=== PATIENT | female | born 1995 | race Caucasian/White ===

== ENCOUNTER 2018-02-10 13:06 | Emergency (ER) | payer BC ==
[2018-02-10 13:59] VITALS: BP 132/76
--- NOTE | 2018-02-10 14:16 | UC ---
Back Pain HPI - HPI Summary HPI Summary: 22 yo female presents with pain in her tailbone area. She tells me that 2 days ago she missed a step going down stairs and landed on her tailbone. Has had pain in the area since that time - worse when trying to move from a stationary position. She has been taking ibuprofen with no relief. Denies numbness, tingling, loss of bowel/bladder function, radiation of pain. - History of Current Complaint Chief Complaint: UCLowerExtremity Stated Complaint: TAILBONE INJ Time Seen by Provider: 02/10/18 14:15 Hx Obtained From: Patient Hx Last Menstrual Period: 01/20/18 Onset/Duration: Sudden Onset Timing: Constant Severity Initially: Severe Severity Currently: Severe Pain Intensity: 9 Pain Scale Used: 0-10 Numeric - Allergies/Home Medications Allergies/Adverse Reactions: Allergies Allergy/AdvReac Type Severity Reaction Status Date / Time No Known Allergies Allergy Verified 02/10/18 13:53 Home Medications: Home Medications Ibuprofen TAB* [Advil TAB*] 600 mg PO Q6H PRN 02/10/18 [History Confirmed ] PMH/Surg Hx/FS Hx/Imm Hx - Additional Past Medical History Additional PMH: None - Surgical History Surgical History: None - Family History Known Family History: Positive: None - Social History Occupation: Employed Full-time Lives: With Family Alcohol Use: Occasionally Substance Use Type: None Smoking Status (MU): Never Smoked Tobacco Review of Systems Constitutional: Negative Skin: Negative Respiratory: Negative Cardiovascular: Negative Gastrointestinal: Negative Genitourinary: Negative Neurovascular: Negative Musculoskeletal: Other: - Tailbone pain Neurological: Negative Psychological: Negative All Other Systems Reviewed And Are Negative: Yes Physical Exam - Summary Physical Exam Summary: GENERAL: NAD. WDWN. No pain distress. SKIN: No rashes, sores, lesions, or open wounds. NECK: Supple. FROM. Nontender. No lymphadenopathy. CHEST: CTAB. No r/r/w. No accessory muscle use. Breathing comfortably and in no distress. CV: RRR. Without m/r/g. Pulses intact. Cap refill <2seconds MSK: Moderate TTP over coccyx. Pain with flexion and extension of spine. Negative SLR b/l. Strength 5/5 B/L LEs including dorsiflexion and plantar flexion. FROM B/L LEs. No edema. NEURO: Alert. Sensations intact B/L LEs L3-S1. PSYCH: Age appropriate behavior. Triage Information Reviewed: Yes Vital Signs: Initial Vital Signs Temp 98.2 F 02/10/18 13:54 Pulse 87 02/10/18 13:54 Resp 15 02/10/18 13:54 BP 132/76 02/10/18 13:54 Pulse Ox 99 02/10/18 13:54 Vital Signs Reviewed: Yes Back Pain Course/Dx - Course Course Of Treatment: XR: IMPRESSION: POSSIBLE NONDISPLACED FRACTURE OF THE SACRUM. Given this result, a CT was ordered which revealed: IMPRESSION: PROBABLE NONDISPLACED FRACTURE OF THE COCCYX. I verified this reading with Dr. Barrios. Discussed results with the pt. She was given one tab of [place] in the clinic with great pain relief. Will dc her with a short supply of norco and advise her to ice the area and continue taking ibuprofen. F/u if symptoms worsen or persist. - Differential Dx/Diagnosis Provider Diagnoses: NONDISPLACED FRACTURE OF THE COCCYX. Fall Discharge - Sign-Out/Discharge Documenting (check all that apply): Patient Departure All imaging exams completed and their final reports reviewed: Yes - Discharge Plan Condition: Stable Disposition: HOME Prescriptions: HYDROcodone/ACETAMIN 5-325 MG* [[place] 5-325 TAB*] 1 tab PO Q8H PRN #9 tab MDD 3 PRN Reason: Pain Patient Education Materials: Coccyx Injury (ED) Forms: *School Release Referrals: No Primary Care Phys,NOPCP [Primary Care Provider] - Additional Instructions: If you develop a fever, shortness of breath, chest pain, new or worsening symptoms - please call your PCP or go to the ED. 1) Try a donut pillow for pain relief 2) May continue to take ibuprofen every 6-8 hours as needed for pain - Billing Disposition and Condition Condition: STABLE Disposition: Home
[2018-02-10] MEDS ORDERED: HYDROcodone/ACETAMIN 5-325 MG* 1 TAB PO ONE (14:22)
--- NOTE | 2018-02-10 15:00 | RAD ---
INDICATION: Sacrococcygeal injury. COMPARISON: There are no relevant prior studies available for comparison. TECHNIQUE: 3 views of the sacrococcygeal spine were obtained. FINDINGS: The vertebra are in normal alignment. On the frontal view there is suggestion of a nondisplaced fracture present laterally on the right side at the sacrococcygeal junction. This is not seen on the lateral view. IMPRESSION: POSSIBLE NONDISPLACED FRACTURE OF THE SACRUM.
--- NOTE | 2018-02-10 16:05 | RAD ---
INDICATION: Possible sacral fracture. COMPARISON: Comparison is made with a prior x-ray study of the sacrococcygeal spine obtained earlier today. TECHNIQUE: Contiguous axial sections were obtained through the pelvis without intravenous or oral contrast. Images were reconstructed in the coronal and sagittal planes. FINDINGS: PELVIC BONES: The bones are in normal alignment. On the sagittal reconstructed images there appears to be a nondisplaced fracture through the first coccygeal segment. This is not well seen on the other images. No other fractures are seen. The sacroiliac joint spaces appear maintained. BOWEL: The visualized portion of the small bowel and colon appear nondistended. LYMPH NODES: No significant enlarged pelvic or inguinal lymph nodes are seen. PERITONEUM: No free intraperitoneal air or fluid is seen. IMPRESSION: PROBABLE NONDISPLACED FRACTURE OF THE COCCYX.
== END 2018-02-10 16:25 | disposition home or self-care (01) ==
LOC: UCCORT 13:06
DX: S32.2XXA Fracture of coccyx, initial encounter for closed fracture (principal); W10.9XXA Fall (on) (from) unspecified stairs and steps, initial encounter; Y92.9 Unspecified place or not applicable
CPT/HCPCS: 72192; 72220; 99202; G0463